=== PATIENT | male | born 1990 | race Caucasian/White ===

== ENCOUNTER 2017-03-06 01:10 | Emergency (ER) | payer BC, OTHER ==
[~2017-03-06] VITALS: Ht 175.3 cm; Wt 73.9 kg
[2017-03-06 01:10] VITALS: TEMP 37.2; O2SAT 95; Ht 175.3 cm; Wt 73.9 kg
[~2017-03-06 01:10] MED LIST: AMPH10CA3 PO
--- NOTE | 2017-03-06 01:30 | EMERGENCY ROOM VISIT NOTE ---
History Report prepared by Misty: Ros Rosenthal Under the Supervision of: Dr. Sabrina Argueta D.O. 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 Per nursing staff the patient was kicked out of [employer] tonight and was found trying to jump a fence to get back in line. The patient denies any injury, trauma, or drug use. 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 Review of Systems See HPI for pertinent positives & negatives. A total of 10 systems reviewed and were otherwise negative. Past Medical & Surgical Medical Problems: (1) Deviated septum Family History No pertinent family history stated. Social History Alcohol Use: occasionally Drug Use: none Marital Status: single Housing Status: lives with roommate Occupation Status: [employer] student Current/Historical Medications No Active Prescriptions or Reported Meds Allergies Coded Allergies: No Known Allergies (Unverified , 03/06/17) Physical Exam Vital Signs Date Time Temp Pulse Resp B/P Pulse Ox O2 Delivery O2 Flow Rate FiO2 03/06/17 06:35 104 16 132/94 95 03/06/17 06:05 108 26 03/06/17 05:35 82 24 95 03/06/17 05:30 141/61 03/06/17 05:06 102 03/06/17 05:00 116/77 03/06/17 04:45 82 15 96 03/06/17 04:30 109/72 03/06/17 04:15 92 18 96 03/06/17 04:00 112/55 03/06/17 03:45 87 16 03/06/17 03:30 101/45 03/06/17 03:15 82 16 90 03/06/17 03:10 82 15 92 03/06/17 03:00 106/45 03/06/17 02:40 84 17 97 03/06/17 02:30 106/44 03/06/17 02:10 87 17 95 03/06/17 02:00 124/51 03/06/17 01:40 107 24 94 03/06/17 01:30 113/45 03/06/17 01:19 111 03/06/17 01:15 129/92 03/06/17 01:10 95 Room Air 03/06/17 01:10 37.2 126 16 129/92 95 Room Air Physical Exam General: The patient seems disoriented and smells of alcohol HEENT: Head - normocephalic and atraumatic Pupils are equal, round, and reactive to light. Pupils are 4mm and sluggishly reactive to light. Extraocular eye muscles are intact, and sclera are anicteric. Nose - moist nasal mucosa without discharge. Mouth - moist buccal mucosa. Oropharynx is nonerythematous and there is no tonsillar exudate or edema noted. Neck: Supple; no JVD, nuchal rigidity, cervical lymphadenopathy. Heart: Tachycardic rate and rhythm. There is a normal S1 and S2 with no murmurs , clicks, or gallops appreciated. Lungs: Clear to auscultation bilaterally with no wheezes, rales, or rhonchi. Abdomen: Soft, completely nontender, nondistended, with good bowel sounds. There are no palpable pulsatile masses or hepatosplenomegaly. There is no guarding, rigidity, or rebound noted. Extremities: No evidence of cyanosis, clubbing, or edema. There are easily palpable peripheral pulses. Skin: warm and dry with good turgor and no rashes. Medical Decision & Procedures Laboratory Results 03/06/17 00:15 Test 03/06/17 00:15 Anion Gap 7.0 mmol/L (3-11) Est Creatinine Clear Calc Drug Dose 103.6 ml/min Estimated GFR () 108.3 Estimated GFR (Non- 93.5 BUN/Creatinine Ratio 13.6 (10-20) Calcium Level 9.1 mg/dl (8.5-10.1) Ethyl Alcohol mg/dL 273.0 mg/dl (0-3) Laboratory results per my review. ED Course 0114: Past medical records reviewed. The patient was evaluated in room B11B. A complete history and physical exam was performed. Laboratory studies were drawn as above. The patient was placed in the prone position to avoid aspiration. 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 0223: I reevaluated the patient. He is sound asleep and hemodynamically stable. 0400: He remains asleep 0512: I reevaluated the patient and he is sleeping. 0642: Upon reevaluation, the patient is doing well. I discussed findings and results with the patient. He verbalized agreement of the treatment plan. The patient was discharged home. Medical Decision The patient is a 26 year old male who presents to the ED with an alcohol overdose. Differential diagnosis includes alcohol overdose, drug intoxication, hypoglycemia, head injury. LABS: Alcohol 273 Normal Renal Function Glucose 112 This is a 26-year-old male who presents to the emergency department after drinking too much alcohol. The patient had no outward signs of trauma. He was able to rest comfortably here in the emergency department and remained hemodynamically stable. Once he was more sober, he was able to find a friend to come pick him up. He was encouraged to avoid such excessive alcohol use in the future. Impression Primary Impression: Alcohol overdose Scribe Attestation The scribe's documentation has been prepared under my direction and personally reviewed by me in its entirety. I confirm that the note above accurately reflects all work, treatment, procedures, and medical decision making performed by me. Departure Information Dispostion Home / Self-Care Prescriptions No Active Prescriptions or Reported Meds Referrals [facility] (PCP) Forms HOME CARE DOCUMENTATION FORM, IMPORTANT VISIT INFORMATION Patient Instructions ED Overdose Alcohol, My [facility] Additional Instructions Avoid such excessive alcohol use in the future Take plenty of clear liquids today Use tylenol for headache. Rest
[2017-03-06 01:53] LABS: BUN/CREATININE RATIO 13.6 (10-20); CALCIUM 9.1 mg/dl (8.5-10.1); CREATININE 1.1 mg/dl (0.60-1.40); POTASSIUM 3.6 mmol/L (3.5-5.1)
[2017-03-06 06:35] VITALS: BP 132/94; PULSE 104; O2SAT 95
== END 2017-03-06 06:35 | disposition home or self-care (01) ==
LOC: EDBD 01:10 → C.EDB 01:12
DX: T51.0X1A Toxic effect of ethanol, accidental (unintentional), initial encounter (principal); X58.XXXA Exposure to other specified factors, initial encounter